=== PATIENT | male | born 1945 | race Caucasian/White ===

== ENCOUNTER 2016-11-08 23:22 | Inpatient (IN) | payer MEDICARE, OTHER ==
[2016-11-09 00:07] LABS: ABSOLUTE LYMPHOCYTES (AUTO) 0.8 10^3/uL (0.5-4.7); ABSOLUTE MONOCYTES (AUTO) 0.9 10^3/uL (0.1-1.4); ABSOLUTE NEUT (AUTO) 5.3 10^3/uL (1.7-8.2); BASOPHILS % (AUTO) 0.3 % (0-2); EOSINOPHILS % (AUTO) 0.1 % (0-6); HEMATOCRIT 38.7 % (37.9-51.0); HGB HCT DIFFERENCE 0.3; LYMPHOCYTES % (AUTO) 12.1 % (13-45); MEAN CORPUSCULAR HEMOGLOBIN 30.1 pg (27.0-33.4); MEAN CORPUSCULAR HGB CONC 33.7 g/dL (32.0-36.0); MEAN CORPUSCULAR VOLUME 89 fl (80-97); MONOCYTES % (AUTO) 12.2 % (3-13); RED BLOOD COUNT 4.33 10^6/uL (4.35-5.55); RED CELL DISTRIBUTION WIDTH 14.5 % (11.5-14.0); SEGMENTED NEUTROPHILS % (AUTO) 75.3 % (42-78)
[2016-11-09 00:15] LABS: PROTHROMBIN TIME 13.3 SEC (11.4-15.4)
[2016-11-09 00:16] LABS: ALANINE AMINOTRANSFERASE 35 U/L (21-72); ALBUMIN 3.6 g/dL (3.5-5.0); ALKALINE PHOSPHATASE 112 U/L (38-126); ANION GAP 12 (5-19); ASPARTATE AMINO TRANSFERASE 28 U/L (17-59); BILIRUBIN,DIRECT 0.5 mg/dL (0.0-0.4); BILIRUBIN,TOTAL 2.8 mg/dL (0.2-1.3); BLOOD UREA NITROGEN 15 mg/dL (7-20); CALCIUM 8.7 mg/dL (8.4-10.2); CARBON DIOXIDE 22 mmol/L (22-30); CHLORIDE 102 mmol/L (98-107); GLUCOSE 224 mg/dL (75-110); POTASSIUM 4.1 mmol/L (3.6-5.0); SODIUM 136.1 mmol/L (137-145); TOTAL PROTEIN 7.4 g/dL (6.3-8.2)
--- NOTE | 2016-11-09 00:37 | RADIOLOGY REPORT (SQ) ---
EXAM DESCRIPTION: CHEST SINGLE VIEW COMPLETED DATE/TIME: 11/09/2016 12:24 am REASON FOR STUDY: fever COMPARISON: None. EXAM PARAMETERS: NUMBER OF VIEWS: One view. TECHNIQUE: Single frontal radiographic view of the chest acquired. RADIATION DOSE: NA LIMITATIONS: None. FINDINGS: LUNGS AND PLEURA: No opacities, masses or pneumothorax. No pleural effusion. MEDIASTINUM AND HILAR STRUCTURES: No masses. Contour normal. HEART AND VASCULAR STRUCTURES: Heart normal in size. Normal vasculature. BONES: No acute findings. HARDWARE: None in the chest. OTHER: No other significant finding. IMPRESSION: NO ACUTE RADIOGRAPHIC FINDING IN THE CHEST. TECHNICAL DOCUMENTATION: JOB ID: [id number]
[2016-11-09 00:42] LABS: AMORPHOUS SEDIMENT,URINE TRACE /HPF; APPEARANCE,URINE CLOUDY; BILIRUBIN,URINE NEGATIVE (NEGATIVE); GLUCOSE, URINE 50 mg/dL (NEGATIVE); KETONES,URINE TRACE mg/dL (NEGATIVE); LEUKOCYTE ESTERASE,URINE MODERATE (NEGATIVE); NITRITE,URINE NEGATIVE (NEGATIVE); PROTEIN,URINE >=500 mg/dL (NEGATIVE); URINE SPECIFIC GRAVITY 1.024
[2016-11-09] MEDS ORDERED: CEFTRIAXONE INJ 1000 MG VIAL IV ONE (00:45)
[2016-11-09 00:55] LABS: VENOUS BLOOD BASE EXCESS 1.4 mmol/L; VENOUS BLOOD HCO3 24.3 mmol/L (20-32); VENOUS BLOOD PCO2 33.2 mmHg (35-63); VENOUS BLOOD PH 7.48 (7.30-7.42)
[2016-11-09] MEDS: NORMAL SALINE 1000 ML 1,000 ML IV PRN ×2 (00:59→02:28)
--- NOTE | 2016-11-09 01:00 | ER Document Report ---
ED General - General Chief Complaint: Weakness Stated Complaint: ALTERED MENTAL STATUS Time Seen by Provider: 11/08/16 23:43 Mode of Arrival: Stretcher Information source: Relative - HPI Patient complains to provider of: generalized weakness, change in mental status , fever Onset: Other - 3 days Onset/Duration: Gradual Quality of pain: Achy Severity: Moderate Pain Level: 3 Associated symptoms: Body/muscle aches, Weakness Notes: Patient is a 71-year-old male brought to the emergency room by EMS or fever with generalized weakness and change in mental status, his at bedside reports that over the past 2-3 days he has been having worsening symptoms, patient is a poor historian and it is difficult to get accurate information from him, he does complain of back pain at times, however denies pain when asked directly if he is having pain anywhere, he denies any cough, cold or congestion, no abdominal pain, no vomiting or diarrhea, no known sick contacts, he denies dysuria or hematuria, however is odorous of strong smelling urine - Related Data Allergies/Adverse Reactions: No Known Allergies Allergy (Unverified 11/09/16 00:53) Home Medications: Current Home Medications Aspirin [Aspir-Low] 1 tab PO DAILY 11/09/16 [History] Atorvastatin Calcium [Lipitor 20 mg Tablet] 1 tab PO QHS 11/09/16 [History] Cholecalciferol (Vitamin D3) [Vitamin D3] 1 tab PO DAILY 11/09/16 [History] Felodipine [Felodipine ER] 1 tab PO DAILY 11/09/16 [History] Imipramine HCl [Imipramine HCl] 1 tab PO QHS 11/09/16 [History] Isosorbide Mononitrate [Isosorbide Mononitrate ER] 1 tab PO DAILY 11/09/16 [ History] Metformin HCl [Metformin HCl ER] 1 tab PO QPM 11/09/16 [History] Metformin HCl [Metformin HCl ER] 2 tab PO QAM 11/09/16 [History] Metoprolol Succinate [Toprol-Xl 25 mg Tab.sr] 2 tab PO QHS 11/09/16 [History] Nitroglycerin [Nitrostat] 1 tab SL ASDIR PRN 11/09/16 [History] Pantoprazole Sodium [Protonix] 1 tab PO DAILY 11/09/16 [History] Quetiapine Fumarate [Quetiapine Fumarate] 0.5 tab PO QAM 11/09/16 [History] Quetiapine Fumarate [Quetiapine Fumarate] 1.5 tab PO QPM 11/09/16 [History] Ranolazine [Ranexa] 1 tab PO BID 11/09/16 [History] Ticagrelor [Brilinta] 1 tab PO BID 11/09/16 [History] Valsartan [Valsartan] 1 tab PO DAILY 11/09/16 [History] Past Medical History - General Information source: Patient, Relative - Social History Smoking Status: Unknown if Ever Smoked Family History: Reviewed & Not Pertinent - Past Medical History Cardiac Medical History: Reports: Hx Congestive Heart Failure Pulmonary Medical History: Reports: Hx COPD Endocrine Medical History: Reports: Hx Diabetes Mellitus Type 1 Review of Systems - Review of Systems Constitutional: Fever, Weakness EENT: No symptoms reported Cardiovascular: No symptoms reported Respiratory: No symptoms reported Gastrointestinal: No symptoms reported Genitourinary: See HPI Male Genitourinary: No symptoms reported Musculoskeletal: Back pain Skin: No symptoms reported Hematologic/Lymphatic: No symptoms reported Neurological/Psychological: Confusion -: Yes All other systems reviewed and negative Physical Exam - Vital signs Vitals: Temp Pulse Resp BP Pulse Ox 100.4 F 128 H 24 H 125/63 94 11/08/16 23:42 11/08/16 23:42 11/08/16 23:42 11/08/16 23:42 11/08/16 23:42 Interpretation: Tachycardic, Tachypneic - General General appearance: Alert In distress: None Notes: disheveled, odorous of strong smelling urine - HEENT Head: Normocephalic, Atraumatic Eyes: Normal Conjunctiva: Normal Extraocular movements intact: Yes Eyelashes: Normal Pupils: PERRL Mucous membranes: Dry Pharynx: Normal Neck: Normal - Respiratory Respiratory status: No respiratory distress Chest status: Nontender Breath sounds: Normal Chest palpation: Normal - Cardiovascular Rhythm: Regular, Tachycardia Heart sounds: Normal auscultation Murmur: No - Abdominal Inspection: Normal Distension: Distended Bowel sounds: Normal Tenderness: Nontender Organomegaly: No organomegaly - Back Back: Normal - Extremities General upper extremity: Normal color, Normal ROM, Normal temperature General lower extremity: Normal color, Normal ROM, Normal temperature. No: Juan Carlos's sign - Neurological Neuro grossly intact: Yes Cognition: Confused Orientation: Disoriented to events Mila Coma Scale Eye Opening: Spontaneous Melber Coma Scale Verbal: Confused Mila Coma Scale Motor: Obeys Commands Mila Coma Scale Total: 14 Speech: Normal - Psychological Associated symptoms: Normal affect, Normal mood - Skin Skin Temperature: Warm Skin Moisture: Dry Skin Color: Pale Course - Re-evaluation Re-evalutation: 11/09/16 05:19 Patient with acute encephalopathy, urinary tract infection, febrile and tachycardic, started on antibiotics, given several liters of IV fluids, remains slightly tachycardic, therefore discussed with the hospitalist who agrees to treatment for further evaluation and treatment - Vital Signs Vital signs: Temp Pulse Resp BP Pulse Ox 98.2 F 128 H 21 H 160/90 H 97 11/09/16 02:00 11/08/16 23:42 11/09/16 03:42 11/09/16 03:42 11/09/16 03:42 - Laboratory Result Diagrams: 11/08/16 23:35 11/08/16 23:35 Laboratory results interpreted by me: 11/08/16 11/08/16 11/08/16 00:10 23:35 23:35 RBC 4.33 L Hgb 13.0 L RDW 14.5 H Plt Count 145 L Lymphocytes % 12.1 L VBG pH VBG pCO2 Sodium 136.1 L Glucose 224 H Total Bilirubin 2.8 H Direct Bilirubin 0.5 H Urine Protein >=500 H Urine Glucose (UA) 50 H Urine Ketones TRACE H Urine Blood MODERATE H Urine Urobilinogen 2.0 H Ur Leukocyte Esterase MODERATE H Urine Ascorbic Acid 40 H 11/09/16 00:12 RBC Hgb RDW Plt Count Lymphocytes % VBG pH 7.48 H VBG pCO2 33.2 L Sodium Glucose Total Bilirubin Direct Bilirubin Urine Protein Urine Glucose (UA) Urine Ketones Urine Blood Urine Urobilinogen Ur Leukocyte Esterase Urine Ascorbic Acid - Diagnostic Test Radiology reviewed: Image reviewed, Reports reviewed - EKG Interpretation by Me EKG shows normal: Sinus rhythm Rate: Tachycardia - Transfer of Care Care transferred to following provider: Dr. Leon Critical Care Note - Critical Care Note Total time excluding time spent on procedures (mins): 45 Comments: Patient with urinary tract infection, persistent tachycardia, febrile, requiring admission to the hospitalist service for possible sepsis/SIRS Discharge - Discharge Clinical Impression: Systemic inflammatory response syndrome (SIRS) UTI (urinary tract infection) Qualifiers: Urinary tract infection type: site unspecified Hematuria presence: without hematuria Qualified Code(s): N39.0 - Urinary tract infection, site not specified Altered mental status Qualifiers: Altered mental status type: unspecified Qualified Code(s): R41.82 - Altered mental status, unspecified Condition: Fair Disposition: ADMITTED INPATIENT Admitting Provider: Hospitalist Unit Admitted: Telemetry
--- NOTE | 2016-11-09 01:22 | RADIOLOGY REPORT (SQ) ---
EXAM DESCRIPTION: CT HEAD WITHOUT COMPLETED DATE/TIME: 11/09/2016 1:12 am REASON FOR STUDY: injury COMPARISON: None. TECHNIQUE: Axial images acquired through the brain without intravenous contrast. Images reviewed wi th bone, brain and subdural windows. Images stored on PACS. All CT scanners at this facility use dose modulation, iterative reconstruction, and/or weight based d osing when appropriate to reduce radiation dose to as low as reasonably achievable (ALARA). [facility]: Dose Right [facility]: CareDose [facility]: Dose Right [facility]: Teradose 4D [facility]: [employer] RADIATION DOSE: Up-to-date CT equipment and radiation dose reduction techniques were employed. CTDIv ol: 28.0 mGy. DLP: 662 mGy-cm. mGy. LIMITATIONS: None. FINDINGS: VENTRICLES: Normal size and contour. CEREBRUM: No masses. No hemorrhage. No midline shift. Normal alfred/white matter differentiation. N o evidence for acute infarction. CEREBELLUM: No masses. No hemorrhage. No alteration of density. No evidence for acute infarction. EXTRAAXIAL SPACES: No fluid collections. No masses. ORBITS AND GLOBE: No intra- or extraconal masses. Normal contour of globe without masses. CALVARIUM: No fracture. PARANASAL SINUSES: Mild left maxillary sinus disease. SOFT TISSUES: No mass or hematoma. OTHER: No other significant finding. IMPRESSION: NORMAL BRAIN CT WITHOUT CONTRAST. TECHNICAL DOCUMENTATION: JOB ID: [id number] Quality ID # [id number]: Final reports with documentation of one or more dose reduction techniques (e.g., Au tomated exposure control, adjustment of the mA and/or kV according to patient size, use of iterative reconstruction technique) 2010 [employer]- All Rights Reserved
[2016-11-09] MEDS ORDERED: NORMAL SALINE 1000 ML 1,000 ML IV PRN (01:55)
--- NOTE | 2016-11-09 03:53 | RADIOLOGY REPORT (SQ) ---
EXAM DESCRIPTION: CT ABD/PELVIS WITH IV ONLY COMPLETED DATE/TIME: 11/09/2016 3:29 am REASON FOR STUDY: fever COMPARISON: None. TECHNIQUE: CT scan of the abdomen and pelvis performed using helical scanning technique with dynamic intravenous contrast injection. No oral contrast. Images reviewed with lung, soft tissue, and bone windows. Reconstructed coronal and sagittal MPR images reviewed. Delayed images for evaluation of the urinary system also acquired. All images stored on PACS. All CT scanners at this facility use dose modulation, iterative reconstruction, and/or weight based d osing when appropriate to reduce radiation dose to as low as reasonably achievable (ALARA). [facility]: Dose Right [facility]: CareDose [facility]: Dose Right [facility]: Teradose 4D [facility]: [facility] CONTRAST TYPE AND DOSE: contrast/concentration: Isovue 370.00 mg/ml; Total Contrast Delivered: 100.0 ml; Total Saline Delivered: 72.0 ml RENAL FUNCTION: GFR > 60. RADIATION DOSE: Up-to-date CT equipment and radiation dose reduction techniques were employed. CTDIv ol: 21.0 - 21.1 mGy. DLP: 2443 mGy-cm.. LIMITATIONS: None. FINDINGS: LOWER CHEST: Lungs clear. Pericardial effusion. LIVER: Fatty infiltration. No masses. SPLEEN: Normal size. No focal lesions. PANCREAS: No masses. No significant calcifications. No adjacent inflammation or peripancreatic fluid collections. Pancreatic duct not dilated. GALLBLADDER: Surgically absent. ADRENAL GLANDS: No significant masses or asymmetry. RIGHT KIDNEY AND URETER: No solid masses. Cysts. No significant calcifications. No hydronephrosi s or hydroureter. LEFT KIDNEY AND URETER: No solid masses. No significant calcifications. No hydronephrosis or hydr oureter. AORTA AND VESSELS: No aneurysm. No dissection. Renal arteries, SMA, celiac without stenosis. RETROPERITONEUM: No retroperitoneal adenopathy, hemorrhage or masses. BOWEL AND PERITONEAL CAVITY: Diverticulosis. Surgical clips. No inflammatory changes and no free fl uid. APPENDIX: Not visualized. PELVIS: No mass. No free fluid. Normal bladder. ABDOMINAL WALL: No masses. No hernias. BONES: No significant or acute findings. OTHER: No other significant finding. IMPRESSION: NO SIGNIFICANT OR ACUTE FINDING IN THE ABDOMEN OR PELVIS ON CT SCAN WITH IV CONTRAST. TECHNICAL DOCUMENTATION: JOB ID: [id number] Quality ID # [id number]: Final reports with documentation of one or more dose reduction techniques (e.g., Au tomated exposure control, adjustment of the mA and/or kV according to patient size, use of iterative reconstruction technique) 2010 [employer]- All Rights Reserved
[2016-11-09] MEDS ORDERED: MAGNESIUM HYDROXIDE SUSP 30 ML UDCUP PO PRN (05:08)
[2016-11-09] MEDS ORDERED: ACETAMINOPHEN 325 MG TABLET PO PRN (05:08)
--- NOTE | 2016-11-09 05:39 | PDOC H&P ---
History of Present Illness Admission Date/PCP: 11/09/16 04:51 Patient complains of: Confusion and polyuria 3 days History of Present Illness: CHAY COLE is a 71 year old male with a past medical history of morbid obesity, congestive heart failure, diabetes, obstructive sleep apnea and hypertension has been in his usual state of health until approximately 3 days prior to presentation with complaints of confusion. In addition to confusion he has had polyuria with malodorous urine, a fall in the bathtub injuring his left ankle resulting in marked swelling of his left lower leg. In the emergency room he was found to have pyuria, tachycardia and fever he is referred to the hospitalist for admission. Patient is a poor historian is helpful denying recent change in medication or alcohol. Past Medical History Cardiac Medical History: Reports: Congestive Heart Failure, Coronary Artery Disease, Hypertension Pulmonary Medical History: Reports: Chronic Obstructive Pulmonary Disease (COPD) Endocrine Medical History: Reports: Diabetes Mellitus Type 1 Psychiatric Medical History: Reports: Depression Past Surgical History Past Surgical History: Reports: Cardiac Catheterization, Coronary Stent Social History Information Source: Patient, Relative, [facility] Records Lives with: Spouse/Significant other Smoking Status: Former Smoker Frequency of Alcohol Use: None Drugs: None - Advance Directive Resuscitation Status: Full Code Family History Family History: COPD, Hypertension Parental Family History Reviewed: Yes Children Family History Reviewed: Yes Sibling(s) Family History Reviewed.: Yes Medication/Allergy Home Medications: Aspirin [Aspir-Low] 1 tab PO DAILY 11/09/16 Atorvastatin Calcium [Lipitor 20 mg Tablet] 1 tab PO QHS 11/09/16 Cholecalciferol (Vitamin D3) [Vitamin D3] 1 tab PO DAILY 11/09/16 Felodipine [Felodipine ER] 1 tab PO DAILY 11/09/16 Imipramine HCl [Imipramine HCl] 1 tab PO QHS 11/09/16 Isosorbide Mononitrate [Isosorbide Mononitrate ER] 1 tab PO DAILY 11/09/16 Metformin HCl [Metformin HCl ER] 1 tab PO QPM 11/09/16 Metformin HCl [Metformin HCl ER] 2 tab PO QAM 11/09/16 Metoprolol Succinate [Toprol-Xl 25 mg Tab.sr] 2 tab PO QHS 11/09/16 Nitroglycerin [Nitrostat] 1 tab SL ASDIR PRN 11/09/16 Pantoprazole Sodium [Protonix] 1 tab PO DAILY 11/09/16 Quetiapine Fumarate [Quetiapine Fumarate] 0.5 tab PO QAM 11/09/16 Quetiapine Fumarate [Quetiapine Fumarate] 1.5 tab PO QPM 11/09/16 Ranolazine [Ranexa] 1 tab PO BID 11/09/16 Ticagrelor [Brilinta] 1 tab PO BID 11/09/16 Valsartan [Valsartan] 1 tab PO DAILY 11/09/16 Allergies/Adverse Reactions: No Known Allergies Allergy (Unverified 11/09/16 00:53) Review of Systems ROS unobtainable: Due to mental status Physical Exam Vital Signs: Temp Pulse Resp BP Pulse Ox 98.1 F 128 H 20 166/85 H 97 11/09/16 05:20 11/08/16 23:42 11/09/16 05:21 11/09/16 05:21 11/09/16 05:21 General appearance: PRESENT: cooperative, disheveled, mild distress, morbidly obese Head exam: PRESENT: atraumatic, normocephalic Eye exam: PRESENT: conjunctiva pink, EOMI, PERRLA. ABSENT: scleral icterus Ear exam: PRESENT: normal external ear exam Mouth exam: PRESENT: moist, tongue midline Neck exam: ABSENT: carotid bruit, JVD, lymphadenopathy, thyromegaly Respiratory exam: PRESENT: clear to auscultation padmini, crackles. ABSENT: rales, rhonchi, wheezes Cardiovascular exam: PRESENT: RRR, +S1, +S2, systolic murmur, tachycardia. ABSENT: diastolic murmur, rubs Pulses: PRESENT: normal dorsalis pedis pul Vascular exam: PRESENT: normal capillary refill GI/Abdominal exam: PRESENT: diminished bowel sounds, distended, hypoactive bowel sounds, normal bowel sounds, soft. ABSENT: guarding, mass, organolmegaly , rebound, tenderness Rectal exam: PRESENT: deferred Extremities exam: PRESENT: tenderness - Right leg +1 edema left leg with ecchymosis at the ankle and +2 edema, +1 edema, +2 edema Neurological exam: PRESENT: alert, altered, awake, oriented to person, oriented to situation, CN II-XII grossly intact. ABSENT: oriented to place, oriented to time Psychiatric exam: PRESENT: appropriate affect, normal mood. ABSENT: homicidal ideation, suicidal ideation Skin exam: PRESENT: dry, intact, warm. ABSENT: cyanosis, rash Results Impressions: Chest X-Ray 11/08/16 23:54 IMPRESSION: NO ACUTE RADIOGRAPHIC FINDING IN THE CHEST. Head CT 11/09/16 00:25 IMPRESSION: NORMAL BRAIN CT WITHOUT CONTRAST. Abdomen/Pelvis CT 11/09/16 02:51 IMPRESSION: NO SIGNIFICANT OR ACUTE FINDING IN THE ABDOMEN OR PELVIS ON CT SCAN WITH IV CONTRAST. Assessment & Plan - Diagnosis (1) SIRS (systemic inflammatory response syndrome) Is this a current diagnosis for this admission?: YesPlan: Secondary urinary tract infection, trachea midline because from CBC and culture gentle IV fluids secondary to CHF exacerbation requiring BiPAP his home CPAP (2) UTI (urinary tract infection) Qualifiers: Urinary tract infection type: site unspecified Hematuria presence: without hematuria Qualified Code(s): N39.0 - Urinary tract infection, site not specified Is this a current diagnosis for this admission?: YesPlan: No previous episode history of BPH, empiric IV Rocephin follow-up blood and urine culture (3) Encephalopathy Is this a current diagnosis for this admission?: YesPlan: Secondary to acute infection continue outpatient Seroquel (4) Left leg DVT Is this a current diagnosis for this admission?: YesPlan: Left leg injury sustained 2 days ago with significant proximal edema concerning for DVT venous Doppler ordered (5) Acute exacerbation of congestive heart failure Is this a current diagnosis for this admission?: YesPlan: Secondary to UTI and tachycardia, obtain BNP avoid volume overload he appears euvolemic currently (6) Diabetes Is this a current diagnosis for this admission?: YesPlan: Hold metformin and initiate sliding scale insulin q. before meals and at bedtime (7) Obstructive sleep apnea Is this a current diagnosis for this admission?: YesPlan: Will initiate CPAP may require BiPAP if significant congestive heart failure exacerbation evolved - Time Time Spent: 50 to 70 Minutes - Inpatient Certification Medical Necessity: Need Close Monitoring Due to Risk of Patient Decompensation
[2016-11-09 06:20] LABS: CREATINE KINASE MB 1.87 ng/mL (<4.55); TROPONIN I 0.029 ng/mL
[2016-11-09] MEDS: METFORMIN HCL 500 MG TABLET PO SCH ×2 (10:22→18:32)
[2016-11-09] MEDS: QUETIAPINE FUMARATE 100 MG TABLET PO SCH ×2 (10:23→18:33)
[2016-11-09] MEDS: DOCUSATE SODIUM 100 MG CAPSULE PO SCH ×2 (10:31→18:32)
[2016-11-09] MEDS: ASPIRIN 81 MG TABLET, ENT COATED PO SCH (10:31)
[2016-11-09] MEDS: LANSOPRAZOLE 30 MG TAB.RAP.DR PO SCH (10:32)
[2016-11-09] MEDS: AMLODIPINE BESYLATE 5 MG TABLET PO SCH (10:32)
[2016-11-09] MEDS: ISOSORBIDE MONONITRATE 30 MG TAB.ER.24H PO SCH (10:32)
[2016-11-09] MEDS: VALSARTAN 160 MG TABLET PO SCH (10:33)
[2016-11-09] MEDS: CHOLECALCIFEROL (D3) 1,000 UNIT TABLET PO SCH (10:33)
[2016-11-09] MEDS: HEPARIN SOD (PORCINE) 5,000 UNIT/ML 1 ML SYRINGE SUBCUT SCH ×3 (10:35→21:16)
--- NOTE | 2016-11-09 10:43 | Physician Advisory Note ---
Physician Advisor ProgressNote .: Pursuant to the plan for Loco Collier, I have reviewed the medical record for this patient. Physician Advisor Statement: Please consider documentin. "Acute on chronic CHF, suspect ___ type" [syst or diast] - or "chronic CHF , suspect ___ type, no acute exacerbation" - systolic is more likely w/cardiomegaly, SOB, nl BP, S3 gallop - diastolic is more likely w/small heart, concentric LVH, HR>120, orthopnea/ PND, HTN, S4 gallop, JVD, pulmonary edema. Need to clarify points from H&P that appear to contradict: "Acute exac CHF " & "Appears euvolemic currently". 2. "Acute Respiratory Alkalosis, possibly due to " 3. "Acute hyponatremia, mild, likely due to " 4. Whenever there is SIRS due to infxn, please document (A) if POA or not, & (B ) whether or not clinically you believe pt was likely septic. (Not every pt with +SIRS criteria due to infxn is actually septic.) - This pt had fever, tachycardia, tachypnea, encephalopathy w/total GCS 14 initially, plts <150, TBili 2.8, so met both Sepsis-2 & Sepsis-3 criteria for dx. Status: AMS/UTI typically is best brought in as Outpt Obs. However, this 71yo pt had not only that but very prominent tachycardia 128 despite being on metoprolol to slow HR. Appears to have possibly been septic from what is documented so far. He had evidence of dehydration in ED, with dry mucosae, but after 2L IVF in ED, not only had he remained tachycardic, but he showed crackles in lungs and BLE edema (not found by ED dr initially), with "mild distress", concerning for acute on chronic ___ type CHF. Pt also with temp borderline for SIRS/sepsis initially, now spiking higher at 101.1 with persistent tachycardia. Not hemodynamically stable. Attending wanting to give IVF but needing to be careful given underlying chronic ___ CHF. Appropriate for Inpt status. CK
[2016-11-09] MEDS: TICAGRELOR 90 MG TABLET PO SCH ×2 (11:09→18:33)
[2016-11-09] MEDS: RANOLAZINE 500 MG TAB.SR.12H PO SCH ×2 (11:11→18:32)
--- NOTE | 2016-11-09 11:35 | PDOC PROGRESS REPORT ---
Subjective Progress Note for:: 11/09/16 Subjective:: Is less confused this morning. Physical Exam Vital Signs: Temp Pulse Resp BP Pulse Ox 101.1 F H 105 H 20 121/87 H 97 11/09/16 08:00 11/09/16 11:17 11/09/16 11:17 11/09/16 08:00 11/09/16 11:17 General appearance: PRESENT: no acute distress Eye exam: PRESENT: conjunctiva pink. ABSENT: scleral icterus Mouth exam: PRESENT: moist, tongue midline Neck exam: ABSENT: JVD Respiratory exam: PRESENT: clear to auscultation padmini. ABSENT: rales, rhonchi, wheezes Cardiovascular exam: PRESENT: RRR. ABSENT: diastolic murmur, rubs, systolic murmur GI/Abdominal exam: PRESENT: normal bowel sounds, soft. ABSENT: distended, guarding, mass, organolmegaly, rebound, tenderness Extremities exam: PRESENT: calf tenderness - Left calf is swollen and tender, pedal edema - Left pedal edema. ABSENT: clubbing Neurological exam: PRESENT: alert, awake, oriented to person, oriented to place , oriented to time, oriented to situation, CN II-XII grossly intact. ABSENT: motor sensory deficit Psychiatric exam: PRESENT: appropriate affect Skin exam: PRESENT: other - On the left calf Results Laboratory Results: 11/09/16 11/09/16 05:46 05:46 Creatine Kinase 346 H CK-MB (CK-2) 1.87 Troponin I 0.029 Impressions: Chest X-Ray 11/08/16 23:54 IMPRESSION: NO ACUTE RADIOGRAPHIC FINDING IN THE CHEST. Head CT 11/09/16 00:25 IMPRESSION: NORMAL BRAIN CT WITHOUT CONTRAST. Abdomen/Pelvis CT 11/09/16 02:51 IMPRESSION: NO SIGNIFICANT OR ACUTE FINDING IN THE ABDOMEN OR PELVIS ON CT SCAN WITH IV CONTRAST. Assessment & Plan - Diagnosis (1) SIRS (systemic inflammatory response syndrome) Is this a current diagnosis for this admission?: YesPlan: Patient has SIRS and possibly early sepsis given the fever, tachycardia and altered mental status. This appears to be from the urinary tract infection and possibly early pyelonephritis. Will continue with the IV antibiotics (2) UTI (urinary tract infection) Qualifiers: Urinary tract infection type: site unspecified Hematuria presence: without hematuria Qualified Code(s): N39.0 - Urinary tract infection, site not specified Is this a current diagnosis for this admission?: YesPlan: Patient has already grown out gram-negative rods from his urine culture. We will continue with the Rocephin. (3) Encephalopathy Is this a current diagnosis for this admission?: YesPlan: Patient is more alert and oriented this morning. Encephalopathy most likely secondary to his underlying urinary tract infection. (4) Acute exacerbation of congestive heart failure Is this a current diagnosis for this admission?: YesPlan: Has an elevated BNP however clinically he does not have acute exacerbation. He has chronic congestive heart failure presumed to be diastolic dysfunction. (5) Diabetes Is this a current diagnosis for this admission?: YesPlan: Continue with sliding scale insulin coverage (6) Left leg DVT Is this a current diagnosis for this admission?: YesPlan: Patient had a swollen left leg however Dopplers have been done and are negative for any type of DVT. This appears to just be soft tissue swelling. (7) Obstructive sleep apnea Is this a current diagnosis for this admission?: YesPlan: Continue with CPAP nightly. - Time Time Spent with patient: 25-34 minutes - Inpatient Certification Medical Necessity: Need Close Monitoring Due to Risk of Patient Decompensation, Need for IV Antibiotics
--- NOTE | 2016-11-09 12:16 | RADIOLOGY REPORT (SQ) ---
EXAM DESCRIPTION: VENOUS UNILATERAL LOWER COMPLETED DATE/TIME: 11/09/2016 11:58 am REASON FOR STUDY: Left leg injury and edema COMPARISON: None. TECHNIQUE: Dynamic and static alfred scale and color images acquired of the left leg venous system. Se lected spectral images acquired with additional compression and augmentation maneuvers. The contralat eral common femoral vein and saphenofemoral junction were also imaged. Images stored on PACS. LIMITATIONS: None. FINDINGS: COMMON FEMORAL: Normal phasicity, compression and augmentation. No visualized echogenic ma terial on alfred scale. No defects on color images. FEMORAL: Normal compression and augmentation. No visualized echogenic material on alfred scale. No defe cts on color images. POPLITEAL: Normal compression, augmentation. No visualized echogenic material on alfred scale. No defec ts on color images. CALF VESSELS: Normal compression, augmentation. No visualized echogenic material on alfred scale. No de fects on color images. GSV and SSV: Normal compression, augmentation. No visualized echogenic material on alfred scale. No def ects on color images. ANY DEEP VENOUS INSUFFICIENCY: Not evaluated. ANY EVIDENCE OF POPLITEAL CYST: No. OTHER: No other significant finding. CONTRALATERAL COMMON FEMORAL VEIN AND SAPHENOFEMORAL JUNCTION: Normal phasicity, compression and augmentation. No visualized echogenic material on alfred scale. No de fects on color images. IMPRESSION: NO EVIDENCE DVT OR SVT IN THE LEFT LEG. TECHNICAL DOCUMENTATION: JOB ID: [id number]- All Rights Reserved
[2016-11-09] MEDS ORDERED: NORMAL SALINE 1000 ML 500 ML IV ONE (13:16)
--- NOTE | 2016-11-09 13:59 | EKG REPORT ---
SEVERITY:- ABNORMAL ECG - SINUS TACHYCARDIA ATRIAL PREMATURE COMPLEX INCOMPLETE RIGHT BUNDLE BRANCH BLOCK REPOLARIZATION ABNORMALITY, PROB RATE RELATED BORDERLINE PROLONGED QT INTERVAL : Confirmed by: Sharlene Bhatt MD 09-Nov-2016 13:58:26
[2016-11-09] MEDS ORDERED: METOPROLOL TARTRATE 50 MG TABLET PO ONE (21:00)
[2016-11-09] MEDS: CEFTRIAXONE 1 GM/D5W RTU 1 GM/50 ML RTUPB IV SCH (21:15)
[2016-11-09] MEDS: ATORVASTATIN CALCIUM 20 MG TABLET PO SCH (21:17)
[2016-11-09] MEDS: METOPROLOL SUCCINATE 25 MG TAB.SR.24H PO SCH (21:17)
[2016-11-09] MEDS: IMIPRAMINE HCL 25 MG TABLET PO SCH (21:17)
[2016-11-10] MEDS: HEPARIN SOD (PORCINE) 5,000 UNIT/ML 1 ML SYRINGE SUBCUT SCH ×3 (05:00→21:20)
[2016-11-10 06:21] LABS: ABSOLUTE LYMPHOCYTES (AUTO) 0.8 10^3/uL (0.5-4.7); ABSOLUTE MONOCYTES (AUTO) 0.7 10^3/uL (0.1-1.4); ABSOLUTE NEUT (AUTO) 2.6 10^3/uL (1.7-8.2); BASOPHILS % (AUTO) 0.6 % (0-2); HEMATOCRIT 35.5 % (37.9-51.0); HEMOGLOBIN 11.9 g/dL (13.5-17.0); HGB HCT DIFFERENCE 0.2; LYMPHOCYTES % (AUTO) 19.7 % (13-45); MEAN CORPUSCULAR HGB CONC 33.4 g/dL (32.0-36.0); MEAN CORPUSCULAR VOLUME 90 fl (80-97); MONOCYTES % (AUTO) 17.5 % (3-13); RED BLOOD COUNT 3.94 10^6/uL (4.35-5.55); RED CELL DISTRIBUTION WIDTH 14.7 % (11.5-14.0); SEGMENTED NEUTROPHILS % (AUTO) 61.2 % (42-78); WHITE BLOOD COUNT 4.2 10^3/uL (4.0-10.5)
[2016-11-10 06:24] LABS: ANION GAP 10 (5-19); BLOOD UREA NITROGEN 22 mg/dL (7-20); CALCIUM 8.3 mg/dL (8.4-10.2); CARBON DIOXIDE 23 mmol/L (22-30); CHLORIDE 102 mmol/L (98-107); CREATININE RESULT 1.21 mg/dL (0.52-1.25); GLUCOSE 189 mg/dL (75-110); POTASSIUM 4.1 mmol/L (3.6-5.0); SODIUM 135.2 mmol/L (137-145)
[2016-11-10] MEDS: METFORMIN HCL 500 MG TABLET PO SCH ×2 (08:58→17:09)
[2016-11-10] MEDS: QUETIAPINE FUMARATE 100 MG TABLET PO SCH ×2 (09:17→17:09)
[2016-11-10] MEDS: CHOLECALCIFEROL (D3) 1,000 UNIT TABLET PO SCH (09:55)
[2016-11-10] MEDS: TICAGRELOR 90 MG TABLET PO SCH ×2 (09:55→17:09)
[2016-11-10] MEDS: RANOLAZINE 500 MG TAB.SR.12H PO SCH ×2 (09:55→17:09)
[2016-11-10] MEDS: ISOSORBIDE MONONITRATE 30 MG TAB.ER.24H PO SCH (09:55)
[2016-11-10] MEDS: AMLODIPINE BESYLATE 5 MG TABLET PO SCH (09:55)
[2016-11-10] MEDS: LANSOPRAZOLE 30 MG TAB.RAP.DR PO SCH (09:55)
[2016-11-10] MEDS: DOCUSATE SODIUM 100 MG CAPSULE PO SCH ×2 (09:55→17:09)
[2016-11-10] MEDS: VALSARTAN 160 MG TABLET PO SCH (09:55)
[2016-11-10] MEDS: ASPIRIN 81 MG TABLET, ENT COATED PO SCH (09:55)
[2016-11-10] MEDS ORDERED: VANCOMYCIN HCL INJ 1000 MG VIAL IV SCH (11:45)
--- NOTE | 2016-11-10 11:50 | PDOC PROGRESS REPORT ---
Subjective Progress Note for:: 11/10/16 Subjective:: Patient continues to improve. More awake alert and oriented as reported. Denies any PND orthopnea, chest pain, shortness of breath. Overall feels generally weak however. Denies having any diarrhea. Physical Exam Vital Signs: Temp Pulse Resp BP Pulse Ox 98.7 F 79 22 H 131/62 H 99 11/10/16 08:00 11/10/16 08:51 11/10/16 08:51 11/10/16 08:00 11/10/16 08:51 Intake & Output 11/09/16 11/10/16 11/11/16 06:59 06:59 06:59 Intake Total 910 Output Total 105 Balance 805 Weight 161.025 kg General appearance: PRESENT: no acute distress, cooperative, morbidly obese Head exam: PRESENT: normocephalic Eye exam: PRESENT: EOMI Mouth exam: PRESENT: moist, neck supple Neck exam: ABSENT: JVD Respiratory exam: PRESENT: clear to auscultation padmini. ABSENT: rhonchi, wheezes Cardiovascular exam: PRESENT: RRR. ABSENT: gallop GI/Abdominal exam: PRESENT: hypoactive bowel sounds, soft. ABSENT: distended - Obese Extremities exam: PRESENT: +1 edema Neurological exam: PRESENT: alert, awake, oriented to situation Psychiatric exam: ABSENT: agitated Focused psych exam: ABSENT: restlessness Skin exam: PRESENT: dry, vesicles. ABSENT: cyanosis Results Laboratory Results: 11/10/16 05:31 11/10/16 05:31 11/10/16 11/10/16 05:31 05:31 WBC 4.2 RBC 3.94 L Hgb 11.9 L Hct 35.5 L MCV 90 MCH 30.0 MCHC 33.4 RDW 14.7 H Plt Count 130 L Seg Neutrophils % 61.2 Lymphocytes % 19.7 Monocytes % 17.5 H Eosinophils % 1.0 Basophils % 0.6 Absolute Neutrophils 2.6 Absolute Lymphocytes 0.8 Absolute Monocytes 0.7 Absolute Eosinophils 0.0 Absolute Basophils 0.0 Sodium 135.2 L Potassium 4.1 Chloride 102 Carbon Dioxide 23 Anion Gap 10 BUN 22 H Creatinine 1.21 Est GFR ( Amer) > 60 Est GFR (Non-Af Amer) 59 L Glucose 189 H Calcium 8.3 L 11/09/16 11/09/16 05:46 05:46 Creatine Kinase 346 H CK-MB (CK-2) 1.87 Troponin I 0.029 Impressions: Chest X-Ray 11/08/16 23:54 IMPRESSION: NO ACUTE RADIOGRAPHIC FINDING IN THE CHEST. Venous Doppler Study 11/09/16 00:00 IMPRESSION: NO EVIDENCE DVT OR SVT IN THE LEFT LEG. Head CT 11/09/16 00:25 IMPRESSION: NORMAL BRAIN CT WITHOUT CONTRAST. Abdomen/Pelvis CT 11/09/16 02:51 IMPRESSION: NO SIGNIFICANT OR ACUTE FINDING IN THE ABDOMEN OR PELVIS ON CT SCAN WITH IV CONTRAST. Assessment & Plan - Diagnosis (1) SIRS (systemic inflammatory response syndrome) Is this a current diagnosis for this admission?: Yes (2) UTI (urinary tract infection) Qualifiers: Urinary tract infection type: site unspecified Hematuria presence: without hematuria Qualified Code(s): N39.0 - Urinary tract infection, site not specified Is this a current diagnosis for this admission?: Yes (3) Thrombocytopenia Is this a current diagnosis for this admission?: Yes (4) Chronic congestive heart failure Qualifiers: Congestive heart failure type: unspecified congestive heart failure type Qualified Code(s): I50.9 - Heart failure, unspecified Is this a current diagnosis for this admission?: Yes (5) Diabetes Qualifiers: Diabetes mellitus type: type 1 Diabetes mellitus complication status: with unspecified complications Qualified Code(s): E10.8 - Type 1 diabetes mellitus with unspecified complications Is this a current diagnosis for this admission?: Yes (6) Obstructive sleep apnea Is this a current diagnosis for this admission?: Yes (7) COPD (chronic obstructive pulmonary disease) Qualifiers: COPD type: unspecified COPD Qualified Code(s): J44.9 - Chronic obstructive pulmonary disease, unspecified Is this a current diagnosis for this admission?: Yes (8) Coronary artery disease Qualifiers: Coronary Disease-Associated Artery/Lesion type: [place] artery [place] vs. transplanted heart: [place] heart Associated angina: without angina Qualified Code(s): I25.10 - Atherosclerotic heart disease of [place] coronary artery without angina pectoris Is this a current diagnosis for this admission?: Yes (9) Depression Qualifiers: Depression Type: unspecified Qualified Code(s): F32.9 - Major depressive disorder, single episode, unspecified Is this a current diagnosis for this admission?: Yes - Time Time Spent with patient: 25-34 minutes - Plan Summary Plan Summary: Begin physical therapy. Add vancomycin to current treatment regimen. Continue ceftriaxone and follow cultures. Continue supportive care and monitor platelets. Discontinue maintenance IV fluid.
[2016-11-10] MEDS ORDERED: VANCOMYCIN HCL 1,750 MG in DEXTROSE 5%-WATER 250 ML IV ONE (14:00)
[2016-11-10] MEDS: METOPROLOL SUCCINATE 25 MG TAB.SR.24H PO SCH (21:20)
[2016-11-10] MEDS: ATORVASTATIN CALCIUM 20 MG TABLET PO SCH (21:21)
[2016-11-10] MEDS: CEFTRIAXONE 1 GM/D5W RTU 1 GM/50 ML RTUPB IV SCH (21:22)
[2016-11-10] MEDS: IMIPRAMINE HCL 25 MG TABLET PO SCH (21:30)
[2016-11-10] MEDS: VANCOMYCIN HCL 1,000 MG in DEXTROSE 5%-WATER 250 ML IV SCH (22:17)
[2016-11-11] MEDS: IPRATROPIUM/ALBUTEROL 0.5-2.5 MG/3 ML AMPUL NEB PRN ×2 (04:14→12:58)
[2016-11-11] MEDS: VANCOMYCIN HCL 1,000 MG in DEXTROSE 5%-WATER 250 ML IV SCH ×3 (05:08→23:07)
[2016-11-11] MEDS: HEPARIN SOD (PORCINE) 5,000 UNIT/ML 1 ML SYRINGE SUBCUT SCH ×3 (05:08→22:25)
[2016-11-11 05:43] LABS: HEMATOCRIT 34.2 % (37.9-51.0); HEMOGLOBIN 11.9 g/dL (13.5-17.0); HGB HCT DIFFERENCE 1.5; MEAN CORPUSCULAR HEMOGLOBIN 30.8 pg (27.0-33.4); MEAN CORPUSCULAR HGB CONC 34.7 g/dL (32.0-36.0); MEAN CORPUSCULAR VOLUME 89 fl (80-97); RED BLOOD COUNT 3.85 10^6/uL (4.35-5.55); RED CELL DISTRIBUTION WIDTH 14.4 % (11.5-14.0); WHITE BLOOD COUNT 3.6 10^3/uL (4.0-10.5)
[2016-11-11] MEDS: QUETIAPINE FUMARATE 100 MG TABLET PO SCH ×2 (07:52→18:17)
[2016-11-11] MEDS: METFORMIN HCL 500 MG TABLET PO SCH ×2 (07:52→18:17)
[2016-11-11] MEDS: RANOLAZINE 500 MG TAB.SR.12H PO SCH ×2 (09:33→18:17)
[2016-11-11] MEDS: ASPIRIN 81 MG TABLET, ENT COATED PO SCH (09:33)
[2016-11-11] MEDS: VALSARTAN 160 MG TABLET PO SCH (09:33)
[2016-11-11] MEDS: AMLODIPINE BESYLATE 5 MG TABLET PO SCH (09:34)
[2016-11-11] MEDS: LANSOPRAZOLE 30 MG TAB.RAP.DR PO SCH (09:34)
[2016-11-11] MEDS: CHOLECALCIFEROL (D3) 1,000 UNIT TABLET PO SCH (09:34)
[2016-11-11] MEDS: TICAGRELOR 90 MG TABLET PO SCH ×2 (09:34→18:17)
[2016-11-11] MEDS: ISOSORBIDE MONONITRATE 30 MG TAB.ER.24H PO SCH (09:34)
[2016-11-11] MEDS: DOCUSATE SODIUM 100 MG CAPSULE PO SCH ×2 (09:34→18:17)
--- NOTE | 2016-11-11 10:27 | PDOC PROGRESS REPORT ---
Subjective Progress Note for:: 11/11/16 Subjective:: Continues to feel better. More awake alert and responsive. No reported agitation or confusion. No diarrhea, nausea or vomiting, chills or fever. No shortness of breath or respiratory distress reported. Physical Exam Vital Signs: Temp Pulse Resp BP Pulse Ox 97.9 F 87 20 125/57 L 98 11/11/16 07:39 11/11/16 07:39 11/11/16 07:39 11/11/16 07:39 11/11/16 07:39 Intake & Output 11/10/16 11/11/16 11/12/16 06:59 06:59 06:59 Intake Total 910 2820 Output Total 105 Balance 805 2820 Weight 161.025 kg 160 kg General appearance: PRESENT: no acute distress, morbidly obese Head exam: PRESENT: normocephalic Eye exam: PRESENT: EOMI Mouth exam: PRESENT: moist, neck supple Neck exam: ABSENT: JVD Respiratory exam: PRESENT: clear to auscultation padmini. ABSENT: wheezes Cardiovascular exam: PRESENT: RRR. ABSENT: gallop GI/Abdominal exam: PRESENT: soft, other - No CVA tenderness. ABSENT: distended - Obese, tenderness Extremities exam: PRESENT: other - Trace pretibial edema Neurological exam: PRESENT: alert, awake, oriented to situation Skin exam: PRESENT: dry, warm. ABSENT: cyanosis Results Laboratory Results: 11/11/16 05:19 11/10/16 05:31 11/11/16 05:19 WBC 3.6 L RBC 3.85 L Hgb 11.9 L Hct 34.2 L MCV 89 MCH 30.8 MCHC 34.7 RDW 14.4 H Plt Count 126 L 11/09/16 11/09/16 05:46 05:46 Creatine Kinase 346 H CK-MB (CK-2) 1.87 Troponin I 0.029 Impressions: Chest X-Ray 11/08/16 23:54 IMPRESSION: NO ACUTE RADIOGRAPHIC FINDING IN THE CHEST. Venous Doppler Study 11/09/16 00:00 IMPRESSION: NO EVIDENCE DVT OR SVT IN THE LEFT LEG. Head CT 11/09/16 00:25 IMPRESSION: NORMAL BRAIN CT WITHOUT CONTRAST. Abdomen/Pelvis CT 11/09/16 02:51 IMPRESSION: NO SIGNIFICANT OR ACUTE FINDING IN THE ABDOMEN OR PELVIS ON CT SCAN WITH IV CONTRAST. Assessment & Plan - Diagnosis (1) SIRS (systemic inflammatory response syndrome) Is this a current diagnosis for this admission?: Yes (2) UTI (urinary tract infection) Qualifiers: Urinary tract infection type: site unspecified Hematuria presence: without hematuria Qualified Code(s): N39.0 - Urinary tract infection, site not specified Is this a current diagnosis for this admission?: Yes (3) Thrombocytopenia Is this a current diagnosis for this admission?: Yes (4) Chronic congestive heart failure Qualifiers: Congestive heart failure type: unspecified congestive heart failure type Qualified Code(s): I50.9 - Heart failure, unspecified Is this a current diagnosis for this admission?: Yes (5) Diabetes Qualifiers: Diabetes mellitus type: type 1 Diabetes mellitus complication status: with unspecified complications Qualified Code(s): E10.8 - Type 1 diabetes mellitus with unspecified complications Is this a current diagnosis for this admission?: Yes (6) Obstructive sleep apnea Is this a current diagnosis for this admission?: Yes (7) COPD (chronic obstructive pulmonary disease) Qualifiers: COPD type: unspecified COPD Qualified Code(s): J44.9 - Chronic obstructive pulmonary disease, unspecified Is this a current diagnosis for this admission?: Yes (8) Coronary artery disease Qualifiers: Coronary Disease-Associated Artery/Lesion type: [place] artery [place] vs. transplanted heart: [place] heart Associated angina: without angina Qualified Code(s): I25.10 - Atherosclerotic heart disease of [place] coronary artery without angina pectoris Is this a current diagnosis for this admission?: Yes (9) Depression Qualifiers: Depression Type: unspecified Qualified Code(s): F32.9 - Major depressive disorder, single episode, unspecified Is this a current diagnosis for this admission?: Yes - Time Time Spent with patient: 25-34 minutes - Plan Summary Plan Summary: Urine and blood cultures growing E. coli sensitive to ceftriaxone. We will continue current medication. In the meantime blood culture did reveal gram- positive cocci we will keep vancomycin for now. Urine culture however did not reveal gram-positive cocci therefore the possibility of contamination is present as the patient significantly improved yesterday even before vancomycin was started. Increase activity. Physical therapy. Continue other medications and supportive care.
[2016-11-11] MEDS: CEFTRIAXONE 1 GM/D5W RTU 1 GM/50 ML RTUPB IV SCH (22:21)
[2016-11-11] MEDS: ATORVASTATIN CALCIUM 20 MG TABLET PO SCH (22:21)
[2016-11-11] MEDS: METOPROLOL SUCCINATE 25 MG TAB.SR.24H PO SCH (22:21)
[2016-11-11] MEDS: IMIPRAMINE HCL 25 MG TABLET PO SCH (22:25)
[2016-11-11 22:26] LABS: CREATININE RESULT 0.89 mg/dL (0.52-1.25)
[2016-11-12] MEDS: VANCOMYCIN HCL 1,000 MG in DEXTROSE 5%-WATER 250 ML IV SCH (05:24)
[2016-11-12] MEDS: HEPARIN SOD (PORCINE) 5,000 UNIT/ML 1 ML SYRINGE SUBCUT SCH (05:24)
[2016-11-12] MEDS: METFORMIN HCL 500 MG TABLET PO SCH (07:57)
[2016-11-12] MEDS: QUETIAPINE FUMARATE 100 MG TABLET PO SCH (07:57)
--- NOTE | 2016-11-12 10:09 | PDOC DISCHARGE SUMMARY ---
General - Admit/Disc Date/PCP Admission Date/Primary Care Provider: 11/09/16 05:08 Discharge Date: 11/12/16 - Discharge Diagnosis (1) SIRS (systemic inflammatory response syndrome) Is this a current diagnosis for this admission?: Yes (2) UTI (urinary tract infection) Is this a current diagnosis for this admission?: Yes (3) Thrombocytopenia Is this a current diagnosis for this admission?: Yes (4) Chronic congestive heart failure Is this a current diagnosis for this admission?: Yes (5) Diabetes Is this a current diagnosis for this admission?: Yes (6) Obstructive sleep apnea Is this a current diagnosis for this admission?: Yes (7) COPD (chronic obstructive pulmonary disease) Is this a current diagnosis for this admission?: Yes (8) Coronary artery disease Is this a current diagnosis for this admission?: Yes (9) Depression Is this a current diagnosis for this admission?: Yes - Additional Information Resuscitation Status: Full Code Discharge Diet: Cardiac - Low-fat low-salt, Diabetic - No concentrated sweets Discharge Activity: Activity As Tolerated, Balance Activity w/Rest, Weigh Daily Home Medications: Aspirin [Aspir-Low] 81 mg PO DAILY 11/09/16 Atorvastatin Calcium [Lipitor 20 mg Tablet] 20 mg PO QHS 11/09/16 Cholecalciferol (Vitamin D3) [Vitamin D3] 1,000 units PO DAILY 11/09/16 Felodipine [Felodipine ER] 10 mg PO DAILY 11/09/16 Imipramine HCl 25 mg PO QHS 11/09/16 Isosorbide Mononitrate [Isosorbide Mononitrate ER] 30 mg PO DAILY 11/09/16 Metformin HCl [Metformin HCl ER] 1,000 mg PO QAM 11/09/16 Metformin HCl [Metformin HCl ER] 500 mg PO QPM 11/09/16 Metoprolol Succinate [Toprol-Xl 25 mg Tab.sr] 50 mg PO QHS 11/09/16 Nitroglycerin [Nitrostat] 1 tab SL ASDIR PRN 11/09/16 Pantoprazole Sodium [Protonix] 40 mg PO DAILY 11/09/16 Quetiapine Fumarate 100 mg PO QAM 11/09/16 Quetiapine Fumarate 300 mg PO QPM 11/09/16 Ranolazine [Ranexa] 500 mg PO BID 11/09/16 Ticagrelor [Brilinta] 90 mg PO BID 11/09/16 Valsartan 160 mg PO DAILY 11/09/16 Levofloxacin [Levaquin 750 mg Tablet] 750 mg PO DAILY #10 tab 11/12/16 History of Present Illness Patient complains of: Altered mental status/confusion History of Present Illness: CHAY COLE is a 71 year old male with a past medical history of morbid obesity, congestive heart failure, diabetes, obstructive sleep apnea and hypertension has been in his usual state of health until approximately 3 days prior to presentation with complaints of confusion. In addition to confusion he has had polyuria with malodorous urine, a fall in the bathtub injuring his left ankle resulting in marked swelling of his left lower leg. In the emergency room he was found to have pyuria, tachycardia and fever he is referred to the hospitalist for admission. Patient is a poor historian is helpful denying recent change in medication or alcohol. Hospital Course Hospital Course: The patient was admitted to telemetry. The patient was started on intravenous fluids as well as broad-spectrum antibiotics with ceftriaxone. Cultures of the blood and urine were done. The following morning the patient's mental status significantly improved. His blood culture grew E. coli as well as the urine that is sensitive to quinolones as well as to ceftriaxone. However blood culture did grew gram-positive cocci. He was started on vancomycin. Eventually culture came back Staphylococcus epidermidis that is likewise sensitive to quinolones and ceftriaxone. After 48 hours of treatment and being hospitalized the patient significantly improved and back to baseline. His activity was increased and physical therapy was instituted. The patient did well. He requested to be discharged. The rest of the hospital stays essentially unremarkable. He was eventually discharged home with instructions to return to the emergency room if symptoms recur or if fever occurs. Physical Exam Vital Signs: Temp Pulse Resp BP Pulse Ox 98.0 F 90 16 154/72 H 98 11/12/16 08:00 11/12/16 08:00 11/12/16 08:00 11/12/16 08:00 11/12/16 08:00 Intake & Output 11/11/16 11/12/16 11/13/16 06:59 06:59 06:59 Intake Total 2820 2000 Output Total 1200 Balance 2820 800 Weight 160 kg 160 kg General appearance: PRESENT: no acute distress, cooperative, morbidly obese Head exam: PRESENT: normocephalic Eye exam: PRESENT: EOMI Mouth exam: PRESENT: moist, neck supple Neck exam: ABSENT: JVD Respiratory exam: PRESENT: clear to auscultation padmini. ABSENT: rhonchi, wheezes Cardiovascular exam: PRESENT: RRR. ABSENT: gallop GI/Abdominal exam: PRESENT: normal bowel sounds, soft. ABSENT: tenderness Extremities exam: PRESENT: other - Trace lower extremity edema Neurological exam: PRESENT: alert, awake, oriented to person, oriented to place , oriented to time, oriented to situation Skin exam: PRESENT: dry, warm. ABSENT: cyanosis Results Laboratory Results: 11/11/16 05:19 11/11/16 21:40 11/11/16 21:40 Creatinine 0.89 Est GFR ( Amer) > 60 Est GFR (Non-Af Amer) > 60 11/09/16 11/09/16 05:46 05:46 Creatine Kinase 346 H CK-MB (CK-2) 1.87 Troponin I 0.029 Impressions: Chest X-Ray 11/08/16 23:54 IMPRESSION: NO ACUTE RADIOGRAPHIC FINDING IN THE CHEST. Venous Doppler Study 11/09/16 00:00 IMPRESSION: NO EVIDENCE DVT OR SVT IN THE LEFT LEG. Head CT 11/09/16 00:25 IMPRESSION: NORMAL BRAIN CT WITHOUT CONTRAST. Abdomen/Pelvis CT 11/09/16 02:51 IMPRESSION: NO SIGNIFICANT OR ACUTE FINDING IN THE ABDOMEN OR PELVIS ON CT SCAN WITH IV CONTRAST. Qualifiers [place] BEING DISCHARGED WITH ANY OF THE FOLLOWING DIAGNOSIS?: No Plan Discharge Plan: Follow-up with primary care physician in 1 week. Follow-up with urologist in [facility] in 2 weeks. Time Spent: Less than 30 Minutes
[2016-11-12] MEDS: IPRATROPIUM/ALBUTEROL 0.5-2.5 MG/3 ML AMPUL NEB PRN (10:16)
[2016-11-12] MEDS ORDERED: MAGNESIUM HYDROXIDE SUSP 30 ML UDCUP PO PRN (10:27)
[2016-11-12] MEDS: TICAGRELOR 90 MG TABLET PO SCH (11:03)
[2016-11-12] MEDS: ISOSORBIDE MONONITRATE 30 MG TAB.ER.24H PO SCH (11:04)
[2016-11-12] MEDS: VALSARTAN 160 MG TABLET PO SCH (11:04)
[2016-11-12] MEDS: RANOLAZINE 500 MG TAB.SR.12H PO SCH (11:04)
[2016-11-12] MEDS: AMLODIPINE BESYLATE 5 MG TABLET PO SCH (11:05)
[2016-11-12] MEDS: DOCUSATE SODIUM 100 MG CAPSULE PO SCH (11:05)
[2016-11-12] MEDS: CHOLECALCIFEROL (D3) 1,000 UNIT TABLET PO SCH (11:05)
[2016-11-12] MEDS: LANSOPRAZOLE 30 MG TAB.RAP.DR PO SCH (11:06)
[2016-11-12] MEDS: ASPIRIN 81 MG TABLET, ENT COATED PO SCH (11:07)
[2016-11-12 11:56] VITALS: BP 146/70
[2016-11-12] MEDS ORDERED: VANCOMYCIN HCL 1,250 MG in DEXTROSE 5%-WATER 250 ML IV SCH (14:00)
[2016-11-13] MEDS ORDERED: LANSOPRAZOLE 30 MG TAB.RAP.DR PO SCH (08:00)
--- NOTE | 2016-11-24 11:25 | Progress Note ---
Provider Note Provider Note: Addendum to discharge summary 11/12/16. Final diagnosis: E. coli sepsis
== END 2016-11-12 13:30 | disposition home health service (06) | DRG 871 ==
LOC: ER 23:22 → EH 11-09 04:51 → UNDOADMIN 11-09 04:51 → EH 11-09 05:08 → 4S 11-09 06:05
PROVIDERS: ADMIT Internal Medicine; ATTEND Internal Medicine
PROC: 5A09457 Assistance with Respiratory Ventilation, 24-96 Consecutive Hours, Continuous Positive Airway Pressure (ICD-10-PCS; principal; 2016-11-09)
DX: A41.51 Sepsis due to Escherichia coli [E. coli] (principal); G93.40 Encephalopathy, unspecified; I50.33 Acute on chronic diastolic (congestive) heart failure; N39.0 Urinary tract infection, site not specified; Z68.41 Body mass index [BMI] 40.0-44.9, adult; J44.9 Chronic obstructive pulmonary disease, unspecified; E10.9 Type 1 diabetes mellitus without complications; E66.01 Morbid (severe) obesity due to excess calories; G47.33 Obstructive sleep apnea (adult) (pediatric); F32.9 Major depressive disorder, single episode, unspecified; D69.6 Thrombocytopenia, unspecified; I25.10 Atherosclerotic heart disease of native coronary artery without angina pectoris; B96.20 Unspecified Escherichia coli [E. coli] as the cause of diseases classified elsewhere; S99.912A Unspecified injury of left ankle, initial encounter; W18.2XXA Fall in (into) shower or empty bathtub, initial encounter; Y92.002 Bathroom of unspecified non-institutional (private) residence as the place of occurrence of the external cause; Z95.5 Presence of coronary angioplasty implant and graft; Z87.891 Personal history of nicotine dependence; Z82.49 Family history of ischemic heart disease and other diseases of the circulatory system; Z82.5 Family history of asthma and other chronic lower respiratory diseases; Z79.82 Long term (current) use of aspirin; Z79.84 Long term (current) use of oral hypoglycemic drugs; Z79.899 Other long term (current) drug therapy
CPT/HCPCS: 36415; 70450; 71010; 74177; 80048; 80053; 80202; 81001; 82272; 82550; 82553; 82565; 82803; 83605; 83735; 83880; 84484; 85025; 85027; 85610; 87040; 87045; 87077; 87086; 87088; 87186; 87205; 89055; 93005; 93010; 93971; 94660; 96361; 96365; 99291; G8978-GP; G8979-GP; J0696; J1644; J3370; J3490; J7030; J7060; J7620